=== PATIENT | male | born 1980 | race Caucasian/White ===

== ENCOUNTER 2022-07-09 09:44 | Emergency (ER) | payer OTHER ==
[2022-07-09 09:58] VITALS: BP 140/79; PULSE 72; RESP 18; TEMP 99.4; BMI 24.7
[2022-07-09] MEDS ORDERED: KETOROLAC TROMETHAMINE 30 MG/1 ML VIAL IM ONE (10:37)
[2022-07-09] MEDS ORDERED: METHOCARBAMOL 500 MG TABLET PO ONE (10:37)
[2022-07-09] MEDS ORDERED: METHOCARBAMOL 500 MG TABLET ONE (10:48)
[2022-07-09] MEDS ORDERED: KETOROLAC TROMETHAMINE 30 MG/1 ML VIAL ONE (10:48)
[2022-07-09 10:57] LABS: PH,URINE 8.5 (5.0-8.0); URINE APPEARANCE CLEAR; URINE BILIRUBIN NEGATIVE (NEGATIVE); URINE COLOR YELLOW; URINE GLUCOSE (UA) NEGATIVE (NEGATIVE); URINE KETONE NEGATIVE (NEGATIVE); URINE LEUK ESTERASE NEGATIVE (NEGATIVE); URINE NITRITE NEGATIVE (NEGATIVE); URINE PROTEIN NEGATIVE (NEGATIVE); URINE UROBILINOGEN 0.2 mg/dL (0.2-1.0)
== END 2022-07-09 11:30 | disposition home or self-care (01) ==
LOC: JER 09:44
PROC: 3E023GC Introduction of Other Therapeutic Substance into Muscle, Percutaneous Approach (ICD-10-PCS; principal; 2022-07-09)
DX: M54.31 Sciatica, right side (principal)
CPT/HCPCS: 81003; 99284-25